=== PATIENT | female | born 1935 | race Caucasian/White ===

== ENCOUNTER → 2016-08-04 08:09 | Outpatient (CLI) | payer MEDICARE, OTHER ==
[2015-02-19 19:31] VITALS: BMI 33.9
[~2016-08-04 08:09] MED LIST: ALEVE220 MG PO; ASCORBIC ACID500 MG PO; BAYER CHEWABLE81 MG PO; CALCIUM 600 +1 EAC3 PO; GLUCOPHAGE500 MG PO; K-TAB10 MEQ PO; LASIX20 MG PO; POTASSIUM99 M1 PO; PROBENECID500 MG PO; XANAX0.25 MG PO; ZOCOR40 MG PO; ZYLOPRIM300 MG PO
== END | disposition home or self-care (01) ==
LOC: D.CT 08:09
DX: N28.1 Cyst of kidney, acquired (principal)

== ENCOUNTER 2017-07-23 03:11 | Inpatient (IN) | payer MEDICARE, OTHER ==
[~2017-07-23] VITALS: Ht 170.2 cm; Wt 97.0 kg
[2017-07-23] VITALS (7 sets, daily range): BP systolic 133–177; BP diastolic 52–70; BMI 30.6
[2017-07-23 03:53] LABS: BASOPHILS 0.1 % (0-2); EOSINOPHILS 0.1 % (0-7); HEMOGLOBIN 13.6 g/dL (12-16); IMMATURE GRANULOCYTES 0.2 % (0-5); LYMPHOCYTES 7.6 % (15-50); MCH 29.8 pg (26.0-34.0); MCHC 33.2 g/dL (31.0-37.0); MCV 89.7 fL (80.0-100.0); MEAN PLATELET VOLUME 10.8 fL (7.4-10.4); MONOCYTES 12.7 % (2-11); NEUTROPHILS 79.3 % (40-80); PLATELET COUNT 138 10x3/uL (130-400); RBC 4.57 10x6/uL (4.00-5.40); RDW 13.3 % (11.5-14.5)
[2017-07-23 04:13] LABS: ALBUMIN 3.6 g/dL (3.4-5.0); ALKALINE PHOSPHATASE 323 U/L (46-116); ALT (SGPT) 201 U/L (10-68); CALC OSMOLALITY 276 mosm/kg (275-300); CALCIUM 9.5 mg/dL (8.5-10.1); CARBON DIOXIDE 25.1 mmol/L (21.0-32.0); CHLORIDE - SERUM 102 mmol/L (98-107); CREATININE - SERUM 0.8 mg/dL (0.6-1.3); GLUCOSE 180 mg/dL (74-106); POTASSIUM - SERUM 3.8 mmol/L (3.5-5.1); PROTEIN - SERUM 8.6 g/dL (6.4-8.2); SODIUM 135 mmol/L (136-145); UREA NITROGEN 18 mg/dL (7-18); eGFR NON AFRICAN AMERICAN 73 mL/min (90-120)
[2017-07-23 04:16] LABS: TROPONIN-I < 0.017 ng/mL (0.000-0.060)
[2017-07-23 07:16] LABS: APPEARANCE CLEAR (CLEAR); BILIRUBIN 1+ (NEGATIVE); COLOR DK YELLOW (YELLOW); GLUCOSE NEGATIVE (NEGATIVE); KETONE NEGATIVE (NEGATIVE); NITRITE POSITIVE (NEGATIVE); PROTEIN TRACE mg/dL (NEGATIVE); SPECIFIC GRAVITY 1.015 (1.005-1.020)
[2017-07-23 07:17] LABS: RED CELLS - URINE 0-5 /hpf (0-5); WHITE CELLS - URINE 0-5 /hpf (0-5)
[2017-07-23 07:18] LABS: AMORPHOUS SEDIMENT <1+ /lpf (NONE SEEN); BACTERIA MANY /hpf (NONE SEEN); EPITHELIAL CELLS 0-5 /hpf (0-5)
[2017-07-24] VITALS: BP 145/64
[2017-07-24 04:00] VITALS: BP 144/71
[2017-07-24 04:23] LABS: BASOPHILS 0.2 % (0-2); EOSINOPHILS 1.4 % (0-7); HEMOGLOBIN 11.4 g/dL (12-16); IMMATURE GRANULOCYTES 0.2 % (0-5); LYMPHOCYTES 13.7 % (15-50); MCH 29.7 pg (26.0-34.0); MCHC 33.5 g/dL (31.0-37.0); MCV 88.5 fL (80.0-100.0); MEAN PLATELET VOLUME 11.2 fL (7.4-10.4); MONOCYTES 12.6 % (2-11); NEUTROPHILS 71.9 % (40-80); PLATELET COUNT 139 10x3/uL (130-400); RBC 3.84 10x6/uL (4.00-5.40); RDW 13.6 % (11.5-14.5)
[2017-07-24 04:34] LABS: WBC 6.6 10x3/uL (4.8-10.8)
[2017-07-24 04:39] LABS: ANION GAP 14.9 mmol/L (8-16); BILIRUBIN - DIRECT 3.39 mg/dL (0.00-0.30); BILIRUBIN - TOTAL 4.3 mg/dL (0.2-1.3); CALCIUM 8.3 mg/dL (8.5-10.1); CARBON DIOXIDE 24.9 mmol/L (21.0-32.0); CREATININE - SERUM 0.8 mg/dL (0.6-1.3); MAGNESIUM - SERUM 1.9 mg/dL (1.8-2.4); POTASSIUM - SERUM 3.8 mmol/L (3.5-5.1)
[2017-07-24 04:46] LABS: ALBUMIN 2.6 g/dL (3.4-5.0)
[2017-07-24 08:08] VITALS: BP 133/54
[2017-07-24 10:46] VITALS: BMI 30.5
[2017-07-24 11:31] VITALS: BP 156/90
[2017-07-24 15:18] VITALS: BP 168/85
[2017-07-24 16:26] VITALS: Ht 170.2 cm; Wt 97.0 kg
[2017-07-24 21:05] VITALS: BP 177/84
[2017-07-25] VITALS: BP 161/68
[2017-07-25 04:00] VITALS: BP 151/70
[2017-07-25 04:52] LABS: BASOPHILS 0.2 % (0-2); EOSINOPHILS 3.9 % (0-7); HEMOGLOBIN 11.5 g/dL (12-16); IMMATURE GRANULOCYTES 0.2 % (0-5); LYMPHOCYTES 13.5 % (15-50); MCH 29.3 pg (26.0-34.0); MCHC 32.9 g/dL (31.0-37.0); MCV 89.3 fL (80.0-100.0); MEAN PLATELET VOLUME 10.7 fL (7.4-10.4); MONOCYTES 14.3 % (2-11); NEUTROPHILS 67.9 % (40-80); PLATELET COUNT 139 10x3/uL (130-400); RBC 3.92 10x6/uL (4.00-5.40); RDW 13.5 % (11.5-14.5); WBC 5.1 10x3/uL (4.8-10.8)
[2017-07-25 04:53] LABS: INR 1.27 (0.85-1.17); PROTIME 15.5 SECONDS (11.6-15.0)
[2017-07-25 05:18] LABS: ALBUMIN 2.6 g/dL (3.4-5.0); ALKALINE PHOSPHATASE 304 U/L (46-116); ALT (SGPT) 135 U/L (10-68); BILIRUBIN - DIRECT 1.13 mg/dL (0.00-0.30); CALC OSMOLALITY 285 mosm/kg (275-300); CALCIUM 8.4 mg/dL (8.5-10.1); CARBON DIOXIDE 24.6 mmol/L (21.0-32.0); CHLORIDE - SERUM 107 mmol/L (98-107); CREATININE - SERUM 0.7 mg/dL (0.6-1.3); GLUCOSE 89 mg/dL (74-106); MAGNESIUM - SERUM 1.8 mg/dL (1.8-2.4); POTASSIUM - SERUM 3.8 mmol/L (3.5-5.1); SODIUM 143 mmol/L (136-145); UREA NITROGEN 18 mg/dL (7-18); eGFR NON AFRICAN AMERICAN 85 mL/min (90-120)
[2017-07-25 05:28] LABS: LIPASE 1594 U/L (73-393)
[2017-07-25 07:51] VITALS: BP 170/71
[2017-07-25 15:21] VITALS: BP 134/59
[2017-07-25 20:10] VITALS: BP 148/66
[2017-07-25 23:38] VITALS: BP 150/63
[2017-07-26 02:22] LABS: APPEARANCE HAZY (CLEAR); BILIRUBIN NEGATIVE (NEGATIVE); COLOR DK YELLOW (YELLOW); GLUCOSE 50 mg/dL (NEGATIVE); KETONE MODERATE mg/dL (NEGATIVE); NITRITE NEGATIVE (NEGATIVE); PROTEIN 2+ mg/dL (NEGATIVE); SPECIFIC GRAVITY 1.025 (1.005-1.020); UROBILINOGEN NORMAL (NORMAL)
[2017-07-26 02:24] LABS: BACTERIA MODERATE /hpf (NONE SEEN); EPITHELIAL CELLS 0-5 /hpf (0-5); MUCUS <1+ /lpf (NONE SEEN); RED CELLS - URINE 0-5 /hpf (0-5)
[2017-07-26 04:56] VITALS: BP 127/63
[2017-07-26 05:11] LABS: BASOPHILS 0.1 % (0-2); EOSINOPHILS 0.1 % (0-7); HEMATOCRIT 32.7 % (36.0-48.0); HEMOGLOBIN 10.6 g/dL (12-16); IMMATURE GRANULOCYTES 0.1 % (0-5); LYMPHOCYTES 10.2 % (15-50); MCH 29.4 pg (26.0-34.0); MCHC 32.4 g/dL (31.0-37.0); MCV 90.6 fL (80.0-100.0); MEAN PLATELET VOLUME 10.8 fL (7.4-10.4); MONOCYTES 17.9 % (2-11); NEUTROPHILS 71.6 % (40-80); PLATELET COUNT 142 10x3/uL (130-400); RBC 3.61 10x6/uL (4.00-5.40); RDW 13.6 % (11.5-14.5)
[2017-07-26 05:33] LABS: WBC 7.6 10x3/uL (4.8-10.8)
[2017-07-26 05:55] LABS: ALBUMIN 2.3 g/dL (3.4-5.0); BILIRUBIN - DIRECT 0.62 mg/dL (0.00-0.30); BILIRUBIN - TOTAL 1.2 mg/dL (0.2-1.3); CALCIUM 8.3 mg/dL (8.5-10.1); CARBON DIOXIDE 25.7 mmol/L (21.0-32.0); MAGNESIUM - SERUM 1.8 mg/dL (1.8-2.4); PROTEIN - SERUM 6.6 g/dL (6.4-8.2)
[2017-07-26 05:56] LABS: ANION GAP 10.9 mmol/L (8-16); CREATININE - SERUM 0.9 mg/dL (0.6-1.3); POTASSIUM - SERUM 4.6 mmol/L (3.5-5.1)
[2017-07-26 08:40] VITALS: BP 123/61
[2017-07-26 12:11] VITALS: BP 125/55
[2017-07-26] MEDS ORDERED: HYDROCODON-ACE1 EAC7 PO ×2 (12:19→12:21)
[2017-07-26 14:23] LABS: ANA REFLEX - ANTICHROMATIN ABS <0.2 AI (0.0-0.9); ANA REFLEX - CENTROMERE B ABS <0.2 AI (0.0-0.9); ANA REFLEX - DBL STRANDED DNA <1 IU/mL (0-9); ANA REFLEX - DIRECT Positive (Negative); ANA REFLEX - JO-1 AB <0.2 AI (0.0-0.9); ANA REFLEX - RNP ANTIBODIES <0.2 AI (0.0-0.9); ANA REFLEX - SCL-70 <0.2 AI (0.0-0.9); ANA REFLEX - SJOGRENS AB SSA >8.0 AI (0.0-0.9); ANA REFLEX - SJOGRENS AB SSB <0.2 AI (0.0-0.9); ANA REFLEX - SMITH AB <0.2 AI (0.0-0.9); HEPATITIS C ANTIBODY 0.1 (0.0-0.9)
[2017-07-26 17:27] VITALS: BP 140/68
[2017-07-26 20:38] VITALS: BP 141/61
[2017-07-27 00:36] VITALS: BP 148/67
[2017-07-27 04:38] LABS: BASOPHILS 0.1 % (0-2); EOSINOPHILS 0 % (0-7); HEMATOCRIT 32.8 % (36.0-48.0); HEMOGLOBIN 11.1 g/dL (12-16); IMMATURE GRANULOCYTES 0.2 % (0-5); LYMPHOCYTES 6.5 % (15-50); MCH 30.1 pg (26.0-34.0); MCHC 33.8 g/dL (31.0-37.0); MCV 88.9 fL (80.0-100.0); MEAN PLATELET VOLUME 10.8 fL (7.4-10.4); MONOCYTES 8.5 % (2-11); NEUTROPHILS 84.7 % (40-80); PLATELET COUNT 158 10x3/uL (130-400); RBC 3.69 10x6/uL (4.00-5.40); RDW 13.7 % (11.5-14.5); WBC 8.7 10x3/uL (4.8-10.8)
[2017-07-27 04:51] LABS: ALBUMIN 2.4 g/dL (3.4-5.0); ANION GAP 13.7 mmol/L (8-16); BILIRUBIN - TOTAL 1.61 mg/dL (0.2-1.3); CALCIUM 8.7 mg/dL (8.5-10.1); CARBON DIOXIDE 21.5 mmol/L (21.0-32.0); CREATININE - SERUM 0.9 mg/dL (0.6-1.3); MAGNESIUM - SERUM 1.7 mg/dL (1.8-2.4); POTASSIUM - SERUM 4.2 mmol/L (3.5-5.1); PROTEIN - SERUM 7.2 g/dL (6.4-8.2)
[2017-07-27 05:31] VITALS: BP 113/60
[2017-07-27 07:00] VITALS: BP 135/66
[2017-07-27 12:31] VITALS: BP 123/61
[2017-07-27 14:23] LABS: MITOCHONDRIAL ANTIBODY 5.4 Units (0.0-20.0); SMOOTH MUSCLE ABS (ACTIN) 24 Units (0-19)
[2017-08-03 16:15] LABS: AEROBE ID Final report (())
== END 2017-07-27 15:29 | disposition home health service (06) | DRG 418 ==
LOC: D.ER 03:11 → D.EDHOLD 10:49 → D.M2 10:49
PROVIDERS: Family Medicine; Internal Medicine Gastroenterology; Surgery
PROC: 0FT44ZZ Resection of Gallbladder, Percutaneous Endoscopic Approach (ICD-10-PCS; principal; 2017-07-25 08:30)
DX: K80.42 Calculus of bile duct with acute cholecystitis without obstruction (principal); N39.0 Urinary tract infection, site not specified; E11.9 Type 2 diabetes mellitus without complications; R74.8 Abnormal levels of other serum enzymes; F32.9 Major depressive disorder, single episode, unspecified; K21.9 Gastro-esophageal reflux disease without esophagitis

== ENCOUNTER 2018-06-20 11:19 | Outpatient (CLI) | payer MEDICARE, OTHER ==
[~2018-06-20] VITALS: Ht 170.2 cm; Wt 86.8 kg
--- NOTE | ~2018-06-20 | HEMODYNAMI ---
PATIENT:ALINA THOMAS MEDICAL RECORD: [id number] : 35 LOCATION:[facility] ADMISSION DATE: 06/20/18 Generatedon:06/20/201815:30 Patient name: ALINA THOMAS Patient #: [id number] SSN: : Date of study: 06/20/2018 Page: Of Hemodynamic Procedure Report Patient Data Patient Demographics Procedure consent was obtained First Name: ALINA Gender: Female Last Name: MARTHA : 1935 Patient #: [id number] Age: 82 year(s) Race: Unknown Additional ID: [id number] Contact details Address: [address] [place] [address] State: [place] City: [facility] Zip code: [address] Past Medical History Allergies Allergen Reaction Date Comments Reported Sulfa drugs 06/20/2018 Admission Admission Data Admission Date: 06/20/2018 Admission Time: 11:19 Weight (lbs.): 191.8 Weight (kg.): 87 Lab Results Lab Result Date: 06/20/2018 Lab Result Time: 0:00 Biochemistry Name Units Result Min Max BUN mg/dl 25 --(----)-* 7 18 Creatinine mg/dl 0.8 --(-*--)-- 0.6 1.3 CBC Name Units Result Min Max Hematocrit % 38.7 *-(----)-- 42 54 Hemoglobin g/dl 13 -*(----)-- 13.5 17.5 Procedure Procedure Types Cath Procedure Diagnostic Procedure LHC LHC w/Coronaries Procedure Description Procedure Date Procedure Date: 06/20/2018 Procedure Start Time: 15:11 Procedure End Time: 15:26 Procedure Staff Name Function Jaxson Lees MD Performing Physician Annelise Vidal RT Monitor Meet Ohara RT Scrub Julienne Aparicio RN Nurse Reji Acuña RN Pet Adoption Counselor Procedure Data Cath Procedure Fluoroscopy Diagnostic fluoroscopy Total fluoroscopy Time: 1.3 time: 1.3 min min Diagnostic fluoroscopy Total fluoroscopy dose: 462 dose: 462 mGy mGy Contrast Material Contrast Material Type Amount (ml) Isovue 300 53 Entry Location Entry Primary Successful Side Size Upsize Upsize Entry Closure Succes sful Closure Location (Fr) 1 (Fr) 2 (Fr) Remarks Device Remarks Femoral Right 5 Fr Exoseal artery Estimated blood loss: 5 ml Diagnostic catheters Device Type Used For End Catheter Placement MULTIPACK JL 4.0 5Fr Procedure catheter MULTIPACK 3DRC 5Fr Procedure catheter MULTIPACK Pigtail 5 Fr Procedure catheter Procedure Complications No complications Procedure Medications Medication Administration Route Dosage 0.9% NaCl I.V. 100 ml/hr Oxygen etCO2 Nasal cannula 2 l/min Lidocaine 2% added to field 20 Heparin Flush Bag added to field 2 bags (1000units/500ml NS) Versed I.V. 2 mg Fentanyl I.V. 50 mcg Fentanyl I.V. 50 mcg Hemodynamics Rest HGB: 13 (g/dl) Heart Rate: 77 (bpm) Pressure Samples Time Site Value (mmHg) Purpose Heart Use Rate(bpm) 15:22 LV 180/23,23 EDP 75 Gradients Valve Time Site Site Mean SEP/DFP Peak To Heart Use 1 2 (mmHg) (sec/min) Peak Rate (mmHg) (bpm) Aortic 15:22 LV AO 76 Snapshots Pre Cath Intra NCS Post Cath Vital Signs Time Heart Resp SPO2 etCO2 NIBP (mmHg) Rhythm Pain Sedation Rate (ipm) (%) (mmHg) Status Level (bpm) 15:07:06 74 18 99 34.2 176/85(140) NSR 0 (11) 10(A) , No pain 15:11:41 70 15 97 36.8 159/82(135) NSR 0 (11) 10(A) , No pain 15:16:13 70 13 98 36.5 167/83(137) NSR 0 (11) 9(A) , No pain 15:20:46 73 13 99 25.3 160/84(128) NSR 0 (11) 10(A) , No pain 15:25:18 79 17 80 36.5 178/88(132) NSR 0 (11) 10(A) , No pain Medications Time Medication Route Dose Verified Delivered Reason Notes Eff ectiveness by by 15:05:52 0.9% NaCl I.V. 100 Jaxson Robins used for ml/hr [facility] Aparicio procedure RN 15:05:59 Oxygen etCO2 2 Jaxson Julienne used for Nasal l/min [facility] procedure cannula RN 15:06:04 Lidocaine 2% added 20ml Jaxson Puri for local to vial [facility] anesthetic field MD THOMPSON 15:06:09 Heparin Flush added 2 Jaxson Puri used for Bag to bags [facility] procedure (1000units/500ml field MD THOMPSON NS) 15:11:12 Versed I.V. 2 mg Jaxson Julienne for YoanaMorro Aparicio sedation MD OROURKE 15:11:18 Fentanyl I.V. 50 Jaxson Julienne for mcg [place] Markus sedation MD OROURKE 15:14:43 Fentanyl I.V. 50 Jaxson Julienne for [facility] Markus sedation MD OROURKEham passer Log Time Note 14:29:01 Signed procedure consent form obtained from patient. 14:29:02 Diagnostic Cath status Elective 14:29:04 Time tracking: Regular hours (M-F 7:00 - 5:00) 14:29:07 Plan of Care:Hemodynamics will remain stable., Cardiac rhythm will remain stable., Comfort level will be maintained., Respiratory function will remain adequate., Patient/ family verbilizes understanding of procedure., Procedure tolerated without complication., Recovers from procedure without complications.. 14:40:15 Reji Acuña RN sent for patient. Start room use. 14:45:44 Patient Weight : 191.8 lbs 14:46:08 Patient allergic to Sulfa drugs 14:46:35 Lab Result : Creatinine 0.8 mg/dl 14:46:35 Lab Result : BUN 25 mg/dl 14:46:35 Lab Result : Hemoglobin 13 g/dl 14:46:35 Lab Result : Hematocrit 38.7 % 14:48:15 Patient received from Pre/Post Procedure Room to CCL 1 Alert and oriented. Tansferred to table in Supine position. 14:48:16 Warm blankets applied, and reji hugger turned on for patient comfort. 14:48:17 Correct patient and procedure confirmed by team. 14:48:17 ECG and BP/O2 sat monitors applied to patient. 14:54:12 H&P Date Dictated: 06/19/2018 Within 30 days and on chart., H&P Addendum completed by physician on day of procedure. (MUST COMPLETE FOR ALL OUTPATIENTS). 14:54:12 Pre-procedure instructions explained to patient. 14:54:13 Pre-op teaching completed and patient verbalized understanding. 14:54:14 Family in patients room. 14:54:15 Patient NPO since Midnight. 14:54:25 Is patient on blood thinner?Yes 14:54:28 ACC The patient was administered the following blood thiners within the last 24 hours: ACCAspirin 14:54:30 Is the patient allergic to Iodine/contrast media? No. 14:54:41 Patient diabetic? Yes. 14:54:47 Previous problem with sedation/anesthesia? No ? 14:54:48 Snore? Yes 14:54:49 Sleep apnea? No 14:54:50 Deviated septum? No 14:54:51 Opens mouth fully? Yes 14:54:52 Sticks out tongue? Yes 14:54:54 Airway obstruction? No ? 14:54:59 Dentures? Yes IN TIGHT 14:55:03 Modified Memo's test Ulnar < 7 seconds 14:55:05 Patient pain scale 0/10 ?. 14:55:08 IV patent on arrival in left forearm with 0.9% NaCl at [facility]. 14:55:11 Lab results completed and on chart. 14:55:20 Right groin area was prepped with chlora-prep and draped in sterile fashion 14:55:21 Alarms reviewed by R. N. 14:55:21 Sharps counted by scrub and verified by R.N. 14:56:11 Use device set Radial Dx or PCI 14:56:12 ACIST Syringe (88742) opened to sterile field. 14:56:13 Bag Decanter () opened to sterile field. 14:56:14 ACIST Hand Control (04986) opened to sterile field. 14:56:14 ACIST Manifold (25890) opened to sterile field. 14:56:15 Tegaderm 4 x 4 (1626W) opened to sterile field. 14:56:17 Medline Cath Pack ([id number]) opened to sterile field. 14:56:18 DIAGNOSTIC WIRE .035 260cm J wire (844977) opened to sterile field. 14:56:18 MBrace Wrist Support ([id number]) opened to sterile field. 14:56:19 SHEATH 6FR Slender (86-1060) opened to sterile field. 15:05:38 Vital chart was started 15:05:40 Baseline sample Acquired. 15:05:44 Rhythm: sinus rhythm 15:05:46 Full Disclosure recording started 15:05:52 0.9% NaCl 100 ml/hr I.V. was administered by Julienne Aparicio RN; used for procedure; 15:05:59 Oxygen 2 l/min etCO2 Nasal cannula was administered by Julienne Aparicio RN; used for procedure; 15:06:04 Lidocaine 2% 20ml vial added to field was administered by Jaxson Lees MD; for local anesthetic; 15:06:08 If diabetic: On Metformin? Yes 15:06:09 Heparin Flush Bag (1000units/500ml NS) 2 bags added to field was administered by Jaxson Lees MD; used for procedure; 15:06:12 If on Metformin: Last Dose? 06/19/2018 15:09:34 Physician arrived 15:09:35 --------ALL STOP TIME OUT------ 15:09:35 Final Timeout: patient, procedure, and site verified with staff and physician. All members of the team are in agreement. 15:09:39 Right Radial site verified by team. 15:09:48 Maximum allowable Isovue 370 dose 300ml. Physician notified. (300ml for normal creatinines. For patients with creatinine of 1.7 or higher multiply weight(kg) x 5 divided by creatinine.) 15:09:59 Fire Safety Assessment: A--An alcohol-based skin anteseptic being used preoperatively., B--The operative or invasive procedure is being performed above the xiphoid process or in the oropharynx., D--An ESU, laser, or fiber-optic light is being used. 15:10:14 Physical assessment completed. ASA score P 2 - A patient with mild systemic disease as per Julienne Aparicio RN. 15:10:28 Sedation plan: IV Moderate Sedation Medication:Versed, Fentanyl 15:10:51 Procedure started. 15:11:01 Local anesthetic to right radial artery with Lidocaine 2% by Jaxson Lees MD.INITIAL ACCESS ONLY 15:11:12 Versed 2 mg I.V. was administered by Julienne Aparicio RN; for sedation; 15:11:18 Fentanyl 50 mcg I.V. was administered by Julienne Aparicio RN; for sedation; 15:13:12 UNABLE TO ADVANCE WIRE. WILL PROCEED TO GROIN 15:13:19 SHEATH 5FR [place] (SWQ980) opened to sterile field. 15:13:22 Use device set Multipack Set 15:13:24 DIAGNOSTIC Multipack 5Fr catheter set (HS0195) opened to sterile field. 15:13:36 Local anesthetic to right femoral artery with Lidocaine 2% by Jaxson Lees MD.ADDITIONAL ACCESS 15:14:07 A 5 Fr sheath was inserted into the Right Femoral artery 15:14:43 Fentanyl 50 mcg I.V. was administered by Julienne Aparicio RN; for sedation; 15:16:44 TR BAND Standard ([id number]) opened to sterile field. 15:18:28 TR BAND APPLIED DUE TO CONTINUALLY BLEEDING 15:18:38 A MULTIPACK JL 4.0 5Fr catheter was advanced over the wire and used for Procedure. 15:19:26 LCA angiography performed. 15:19:54 Catheter removed. 15:20:15 A MULTIPACK 3DRC 5Fr catheter was advanced over the wire and used for Procedure. 15:21:12 RCA angiography performed. 15:21:46 Catheter removed. 15:21:50 A MULTIPACK Pigtail 5 Fr catheter was advanced over the wire and used for Procedure. 15:22:08 LV gram done using GUZMÁN 15:22:10 Injector settings: Ml/sec: 10, Volume: 20, 15:22:30 LV hemodynamics recorded. 15:22:46 EF : 35 % 15:22:48 Catheter removed. 15:23:01 EXOSEAL 5Fr (EX500) opened to sterile field. 15:23:35 Sheath removed intact; hemostasis achieved with Exoseal to the Right Femoral artery. 15:23:39 Procedure ended.(Physican Out) 15:24:04 Fluoroscopy time 01.30 minutes. 15:24:08 Fluoroscopy dose: 462 mGy 15:24:08 Flurop Dose total: 462 15:24:11 Contrast amount:Isovue 300 53ml. 15:24:13 Sharps counted by scrub and verified by R.N. 15:24:16 Post-op/insertion site Right Femoral artery dressed using a 4 x 4 and Tegaderm. 15:24:20 Post-procedure physical assessment completed. ASA score P 2 - A patient with mild systemic disease as per Jaxson Lees MD. 15:24:27 Post procedure rhythm: sinus rhythm 15:24:55 Estimated blood loss: 5 ml 15:24:57 Post procedure instruction explained to patient.Patient verbalizes understanding. 15:25:00 Patient needs reinforcement of post procedure teaching. 15:26:30 Procedure and supply charges have been captured, reviewed, submitted and are correct. 15:26:37 Procedure Complication : No complications 15::39 Vital chart was stopped 15::39 See physician's report for complete and final results. 15:26:44 Report given to Pre/Post Procedure Room. 15:26:46 Patient transfered to Pre/Post Procedure Room with Bed. 15:26:49 Procedure ended. 15:26:49 Full Disclosure recording stopped 15:26:53 End room use (Document Last) Device Usage Item Name Manufacture Quantity Catalog Hospital Part Current Minimal Lot# / Number Charge Number Stock Stock Serial# Code ACIST Acist 1 98721 669813 130138 294524 20 Syringe Medical (61382) Systems Inc Bag Microtek 1 993312 18173 541600 5 Decanter Medical Inc. () ACIST Hand Acist 1 36912 763874 839634 639131 5 Control Medical (26640) Systems Inc ACIST Acist 1 84907 658487 953954 270277 5 Manifold Medical (57936) Systems Inc Tegaderm 4 3M 1 1626W 467444 316473 892701 5 x 4 (1626W) Medline Medline 1 [id number] 202013 20715 269470 5 Cath Pack ([id number]) DIAGNOSTIC St Robson 1 015774 030077 580097 255881 30 WIRE .035 260cm J wire (427331) MBrace Advanced 1 140-0250-00 779606 88484 828192 5 Wrist Vascular Support Dynamics ([id number]) SHEATH 6FR Terumo 1 [id number] 895480 822920 776822 5 Slender (80-1060) SHEATH 5FR Terumo 1 RBR165 284433 124355 705534 5 [place] (LXF600) DIAGNOSTIC Cardinal 1 OZ2370 342182 89849 956576 30 Mozido 5Fr catheter set (TA0055) TR BAND Terumo 1 [id number] 739598 135133 966078 40 Standard (UQT44XUA) MULTIPACK Cardinal 1 856465 5 JL 4.0 5Fr Health catheter MULTIPACK Cardinal 1 998628 5 3DRC 5Fr Health catheter MULTIPACK Cardinal 1 200829 5 Pigtail 5 Health Fr catheter EXOSEAL 5Fr Cardinal 1 EX500 371508 244010 016280 10 (EX500) Health Signature Audit [place] Stage Time Signature Unsigned Intra-Procedure 06/20/2018 Annelise Vidal 3:30:27 PM RT(R) Signatures Monitor : Annelise Vidal Signature : RT Date : Time : [address] [address]
[~2018-06-20 11:19] MED LIST changes: +HYDROCODON-ACE1 EAC7 PO
[2018-06-20] MEDS ORDERED: GABAPENTIN100 MG PO (11:51)
[2018-06-20] MEDS ORDERED: PROBENECID500 MG PO ×2 (11:51→11:52)
[2018-06-20 12:02] VITALS: BP 138/72; Ht 170.2 cm; Wt 86.8 kg
[2018-06-20 12:16] LABS: BASOPHILS 0.3 % (0-2); HEMATOCRIT 38.7 % (36.0-48.0); IMMATURE GRANULOCYTES 0.2 % (0-5); LYMPHOCYTES 17.5 % (15-50); MCH 30.7 pg (26.0-34.0); MCHC 33.6 g/dL (31.0-37.0); MCV 91.5 fL (80.0-100.0); MEAN PLATELET VOLUME 11.1 fL (7.4-10.4); MONOCYTES 11.5 % (2-11); NEUTROPHILS 69.5 % (40-80); PLATELET COUNT 189 10x3/uL (130-400); RBC 4.23 10x6/uL (4.00-5.40); RDW 13.3 % (11.5-14.5); WBC 9.1 10x3/uL (4.8-10.8)
[2018-06-20 12:21] LABS: ANION GAP 10.9 mmol/L (8-16); CALCIUM 9.2 mg/dL (8.5-10.1); CARBON DIOXIDE 27.2 mmol/L (21.0-32.0); CREATININE - SERUM 0.8 mg/dL (0.6-1.3); POTASSIUM - SERUM 4.1 mmol/L (3.5-5.1)
--- NOTE | 2018-06-20 15:50 | NUR ---
PT VISITING WT FRIEND IN ROOM, DENIES ANY C/O. VSS, DENIES ANY C/O. TR BAND IS CDI, FINGERS WARM AND CAP REFILL IS BRISK. EXOSEAL IS CDI TO RIGHT GROIN, PEDAL PULSES PALPABLE. HOB IS FLAT
--- NOTE | 2018-06-20 16:26 | NUR ---
DRESSING TO RIGHT GROIN IS CDI, TR BAND CDI, FINGERS AND TOES WARM WITH BRISK CAP REFILL. HOB IS FLAT, VSS, RESP WITH EASE.
[2018-06-20] MEDS ORDERED: COZAAR50 MG PO (16:38)
[2018-06-20] MEDS ORDERED: ALDACTONE25 MG PO (16:38)
--- NOTE | 2018-06-20 16:50 | NUR ---
PT ASSISTED ONTO BEDPAN, 4 CC OF AIR HAS BEEN WEANED FROM TR BAND WTIH NO BLEEDING NOTED. FINGERS WAM AND CAP REFILL IS BRISK. PT IS ALERT AND DENIES ANY C/O.
--- NOTE | 2018-06-20 17:06 | NUR ---
4 CC OF AIR WEANED FROM TR BAND WTIH NO BLEEDING NOTED. DRESING CDI TO RIGHT GROIN, PEDAL PULSES PALPABLE. PT DENIES ANY C/O. HOB ELEVATED.
--- NOTE | 2018-06-20 19:39 | NUR ---
1720 ALL REMAINING AIR WEANED FROM TR BAND WITH NO BLEEDING NOTED. TR BAND REMOVED AND 2X2 TEGADERM PLACED TO SITE. WRIST IMMOBILIZER IN PLACE. FINGERS WARM AND CAP REFILL IS BRISK. RADIAL PULSE PALPABLE. DRESSING CDI TO RIGHT GROIN, HOB IS ELEVATED. PEDAL PULSES PALPABLE. DC INSTRUCTIONS REVIEWED WITH PT AND FRIEND IN ROOM, WHO VERBALIZE UNDERSTANDING. PT SITTING UP IN BED, EATING SANDWICH, DENIES ANY C/O. PT HAS VOIDED QS. 1735 IV DC'D WITH CATH INTACT AND ASSISTED PT WITH DRESSING FOR DC TO HOME. 1745 PT ESCORTED TO PRIVATE AUTO VIA WC BY [facility] FRIEND DRIVING HER HOME. PT IS ALERT AND DENIES ANY C/O AT TIME OF DC. HAS ALL PERSONAL BELONGINGS AND DC INSTRUCTIONS AT TIME OF DISCHARGE.
--- NOTE | 2018-06-25 12:26 | OP ---
PATIENT NAME: ALINA THOMAS MEDICAL RECORD: [id number] :35 LOCATION:D.CAT ADMISSION DATE: SURGEON: ISA BOWSER MD DATE OF OPERATION: 06/20/2018 PROCEDURE: Left heart catheterization, selective coronary angiography, right femoral artery approach. CATHETERS: A 5-Belgian sheath, 5/4 left and right Alicia, 5/4 pig. The procedure was well tolerated. The patient was returned to the ortiz. Sheath was removed. ExoSeal device was placed. FINDINGS: Left ventriculography in 30-degree GUZMÁN view shows global hypokinesis, marked inferior hypokinesis, LV function reduced 30-35%. CORONARY ANATOMY: LEFT MAIN: Left main is free of disease. LAD: Has severe diffuse distal disease, not amenable to percutaneous intervention. CIRCUMFLEX: There is a large circumflex, free of disease. RIGHT CORONARY ARTERY: Totally occluded, fills via left to right collaterals. IMPRESSION: Ischemic cardiomyopathy. At this point in time, we will start ARB as well as Aldactone. If pressures tolerate, we would add a beta-dwayne as well from more anginal myopathic standpoint. TRANSINT:[id number] Voice Confirmation ID: [id number] DOCUMENT ID: [id number] ISA BOWSER MD at 1226 CC: [id number] DICTATION DATE: 06/20/18 1549 MERCHANDISE STOCKER: 06/20/18 1704 DEP CLI 06/20/18 [facility] [address] [place] [id number]
== END 2018-06-20 17:45 | disposition home or self-care (01) ==
LOC: D.CATH 11:19
PROVIDERS: ATTEND Internal Medicine Interventional Cardiology
DX: I25.5 Ischemic cardiomyopathy (principal); I25.119 Atherosclerotic heart disease of native coronary artery with unspecified angina pectoris; Z01.812 Encounter for preprocedural laboratory examination

== ENCOUNTER → 2018-08-28 11:27 | Outpatient (CLI) | payer MEDICARE, OTHER ==
[~2018-08-28 11:27] MED LIST changes: +ALDACTONE25 MG PO; +COZAAR50 MG PO; +GABAPENTIN100 MG PO
--- NOTE | 2018-09-02 08:31 | EC ---
PATIENT:ALINA THOMAS DATE OF SERVICE: 08/28/18 SEX: F MEDICAL RECORD: [id number] DATE OF : 35 [facility] AGE OF PATIENT: 83 ADMISSION DATE: 08/28/18 REFERRING PHYSICIAN: INTERPRETING PHYSICIAN: ISA BOWSER MD ECHOCARDIOGRAM REPORT ECHO CHARGES 4 ECHO COMPLETE Date: 08/28/18 CLINICAL DIAGNOSIS: CARDIOMYOPATHY, ASSESS EF ECHOCARDIOGRAPHIC MEASUREMENTS (adult normal given) AC root (d.<3.7cm) 3.4 cm LV Septum d (<1.2 cm> 1.6 cm Valve Excursion 1.7 cm LV Septum (systole) 2.0 cm Left Atria (s.<4.0cm> 4.1 cm LVPW d(<1.2cm) 1.6 cm RV (d.<2.3cm) 3.4 cm LVPW (sytole) 1.9 cm LV diastole(<5.6CM) 5.0 cm MV E-F(>70mm/sec) cm LV systole 3.3 cm LVOT Diameter 1.8 cm MV exc.(>10mm) 1.4 cm Est.ejection fraction (50-75%) % DOPPLER: LVIT cm/sec A 114 cm/sec E 68.0 cm/sec LA cm/sec RVSP 24 mmHg LVOT 107 cm/sec AOP1/2T 394 m/s Asc. Ao 134 cm/sec RVOT cm/sec RA cm/sec PA 118 cm/sec AV Gradient Peak 7.18 mmHg AV Mean 3.55 mmHg AV Area 2.6 cm MV Gradient Peak 6.16 mmHg MV Mean 2.19 mmHg MV Area cm COMMENTS: Job Interviewer: Imtiaz FUNG Design Teacher: 3 Dr. Reed TAPE# PACS Pericardial Effusion N DATE OF SERVICE: 08/28/2018 Adequate 2-D echo, color-flow and spectral Doppler, and M-mode. Mild LVH. LV internal dimensions are normal. Wall motion is normal. EF is greater than 55%. Aortic valve is tricuspid. There is no evidence of stenosis by Doppler interrogation. Mild AI by color-flow imaging. Left atrium is at upper limits of normal at 4.1 cm. Mitral valve shows no prolapse. Mild MR. Right-sided chambers are grossly normal. Trace TR. ECHOCARDIOGRAM REPORT [id number] ALINA HTOMAS TRANSINT:[id number] Voice Confirmation ID: [id number] DOCUMENT ID: [id number] ISA BOWSER MD at 0831 CC: [id number] DICTATION DATE: 08/29/18 153 TEST BORER HELPER: 08/29/18 1612 DEP CLI 08/28/18 [place] [id number] [place] [id number]
== END | disposition home or self-care (01) ==
LOC: D.HCCARDIO 11:27
PROVIDERS: ATTEND Internal Medicine Interventional Cardiology
DX: I25.10 Atherosclerotic heart disease of native coronary artery without angina pectoris (principal)

== ENCOUNTER → 2018-10-22 09:03 | Outpatient (CLI) | payer MEDICARE, OTHER | END | disposition home or self-care (01) | LOC: D.MRI 09:03 | PROVIDERS: ATTEND Orthopaedic Surgery | DX: M54.16 Radiculopathy, lumbar region (principal) ==

== ENCOUNTER → 2019-05-14 11:57 | Outpatient (CLI) | payer MEDICARE, OTHER ==
[2019-05-14 12:26] LABS: BILIRUBIN NEGATIVE (NEGATIVE); GLUCOSE NEGATIVE (NEGATIVE); KETONE NEGATIVE (NEGATIVE); NITRITE POSITIVE (NEGATIVE); UROBILINOGEN NORMAL (NORMAL)
[2019-05-14 12:27] LABS: AMORPHOUS SEDIMENT <1+ /lpf (NONE SEEN); BACTERIA MANY /hpf (NEGATIVE); CALCIUM OXALATE CRYSTALS 0-5 /hpf (NONE SEEN); RED CELLS - URINE 0-5 /hpf (0-5); WHITE CELLS - URINE 0-5 /hpf (NEGATIVE)
== END | disposition home or self-care (01) ==
LOC: D.LABREF 11:57
PROVIDERS: ATTEND Urology
DX: N39.0 Urinary tract infection, site not specified (principal)

== ENCOUNTER 2019-10-03 05:16 | Day surgery (SDC) | payer MEDICARE, OTHER ==
[~2019-10-03] VITALS: Ht 171.4 cm; Wt 83.5 kg
[2019-10-03 05:54] LABS: HEMATOCRIT 36.8 % (36.0-48.0); HEMOGLOBIN 11.8 g/dL (12-16); MCH 29.1 pg (26.0-34.0); MCHC 32.1 g/dL (31.0-37.0); MCV 90.9 fL (80.0-100.0); MEAN PLATELET VOLUME 9.8 fL (7.4-10.4); RBC 4.05 10x6/uL (4.00-5.40); WBC 5.9 10x3/uL (4.8-10.8)
[2019-10-03 06:11] LABS: ANION GAP 10.1 mmol/L (8-16); CALCIUM 8.9 mg/dL (8.5-10.1); CARBON DIOXIDE 26.9 mmol/L (21.0-32.0); CREATININE - SERUM 0.9 mg/dL (0.6-1.3)
[2019-10-03 06:55] VITALS: BP 164/77; Ht 171.4 cm; Wt 83.5 kg
--- NOTE | 2019-10-03 10:21 | NUR ---
0900 IV D/C'D WITH CANNULA INTACT, PRESSURE HELD, AND DRSG PLACED. DISCHARGE INSTRUCTION GIVEN TO PT AND FRIEND. VERBALIZED AN UNDERSTANDING. DISCHARGED WITH PAYTON SCORE OF 16 AND W/O C/O
--- NOTE | 2019-10-03 13:49 | OP ---
PATIENT NAME: ALINA CHI MEDICAL RECORD: [id number] :35 LOCATION:D.OPS ADMISSION DATE: SURGEON: BONG LEE DO DATE OF OPERATION: 10/03/2019 PROCEDURE PERFORMED: Right endoscopic carpal tunnel release. PREOPERATIVE DIAGNOSIS: Right carpal tunnel syndrome. POSTOPERATIVE DIAGNOSIS: Right carpal tunnel syndrome. INDICATIONS: Ms. Chi patient is an 84-year-old female well known to me who has had right hand numbness and tingling with thenar atrophy for quite some time. She had nerve conduction study, which showed severe carpal tunnel syndrome of the wrist, entrapment of the median nerve. I informed her of the risks of the surgery including infection, bleeding, damage to nerves or vessels, need for further surgery, continued pain, continued numbness and atrophy not getting any better. She is aware of all those risks and signed the consent. SURGEON: Bong Lee DO DESCRIPTION OF PROCEDURE: The patient was taken to operative suite, laid in supine position, given general anesthetic. Two grams Ancef LMA were placed. Right upper extremity was then prepped and draped in sterile fashion. Timeout was performed. Everyone was in agreement with the correct site, side, patient, and procedure. I then began by exsanguinating the right upper extremity and tourniquet was inflated to 250 mmHg, it was up for 5 minutes. Then the incision centered over the palmaris longus tendon at the wrist on the volar side, with a 15 blade scalpel to go through the skin and bluntly dissected with Ragnells down to the median nerve. I then released the forearm fascia from distal to proximal with scissors under direct loupe magnification. I then entered the carpal tunnel with the dilators and then put in the sheath. I then brought the camera in and probe and the rasp to clean off the transverse carpal ligament and I had a good view and then brought the blade in, raised it up and transected the transverse carpal ligament. I had good picture of fat herniated down to the carpal tunnel, indicating good release. I then removed all the instruments and used the Ragnell and scissors and spreading any remaining fibers of transverse carpal ligament. I then injected the site with 0.25% Marcaine with epinephrine, 10 mL on the side and tourniquet was deflated. Meaghan Carrillo, certified fish hatchery assistant, then closed with a 5-0 Monocryl in inverted interrupted fashion. Steri-Strips, Adaptic, 4 x 4's, Kerlix, and Coban was lightly wrapped on hand. She was then awakened and taken to recovery in stable condition. BLOOD LOSS: Minimal. COMPLICATIONS: None. TRANSINT:[id number] Voice Confirmation ID: [id number] DOCUMENT ID: [id number] OPERATIVE REPORT [id number] ALINA CHI,BONG Keene DO at 1349 CC: [id number] DICTATION DATE: 10/03/19 0953 SCIENTIFIC ARTIST: 10/03/19 1054 [facility] 10/03/19 [address] [place] [address]
== END 2019-10-03 09:20 | disposition home or self-care (01) ==
LOC: D.OPS 05:16 → D.PAN 10:15 → D.OPS 13:15
PROVIDERS: Anesthesiology; ATTEND Orthopaedic Surgery
DX: G56.01 Carpal tunnel syndrome, right upper limb (principal); R60.0 Localized edema; E11.9 Type 2 diabetes mellitus without complications; M17.11 Unilateral primary osteoarthritis, right knee

== ENCOUNTER 2019-10-09 20:03 | Emergency (ER) | payer MEDICARE, OTHER ==
[~2019-10-09] VITALS: Ht 171.4 cm; Wt 85.0 kg
[2019-10-09 20:05] VITALS: BP 154/71; Ht 171.4 cm; Wt 85.0 kg
== END 2019-10-09 21:30 | disposition home or self-care (01) ==
LOC: D.ER 20:03
DX: M25.551 Pain in right hip (principal); W19.XXXA Unspecified fall, initial encounter; Y93.9 Activity, unspecified; Y92.9 Unspecified place or not applicable; E11.40 Type 2 diabetes mellitus with diabetic neuropathy, unspecified; I10 Essential (primary) hypertension; Z79.84 Long term (current) use of oral hypoglycemic drugs; M25.562 Pain in left knee

== ENCOUNTER → 2020-04-19 16:53 | Outpatient (CLI) | payer MEDICARE, OTHER ==
[2019-10-09 20:05] VITALS: BMI 28.9
[2020-04-19 16:59] LABS: BASOPHILS 0.3 % (0-2); EOSINOPHILS 3.8 % (0-7); HEMATOCRIT 36.4 % (36.0-48.0); HEMOGLOBIN 12.2 g/dL (12-16); IMMATURE GRANULOCYTES 0.1 % (0-5); LYMPHOCYTE ABS# 1.88 10x3/uL (1.18-3.74); LYMPHOCYTES 27.2 % (15-50); MCH 30.2 pg (26.0-34.0); MCHC 33.5 g/dL (31.0-37.0); MCV 90.1 fL (80.0-100.0); MEAN PLATELET VOLUME 10.7 fL (7.4-10.4); MONOCYTES 12.2 % (2-11); NEUTROPHIL ABS# 3.89 10x3/uL (1.56-6.13); NEUTROPHILS 56.4 % (40-80); RBC 4.04 10x6/uL (4.00-5.40); RDW 13.6 % (11.5-14.5); WBC 6.9 10x3/uL (4.8-10.8)
[2020-04-19 17:05] LABS: PLATELET COUNT 239 10x3/uL (130-400)
[2020-04-19 17:07] LABS: BACTERIA MANY HPF (NONE SEEN); BILIRUBIN NEGATIVE (NEGATIVE); KETONE NEGATIVE (NEGATIVE); NITRITE POSITIVE (NEGATIVE); UROBILINOGEN NORMAL mg/dL (< 2); WHITE CELLS - URINE >50 HPF (0-4)
[2020-04-19 17:11] LABS: ALBUMIN 3.3 g/dL (3.4-5.0); ALKALINE PHOSPHATASE 144 U/L (30-120); ALT (SGPT) 21 U/L (10-68); BILIRUBIN - TOTAL 0.64 mg/dL (0.2-1.3); CALC OSMOLALITY 284 mosm/kg (275-300); CALCIUM 9.3 mg/dL (8.5-10.1); CARBON DIOXIDE 27.9 mmol/L (21.0-32.0); CHLORIDE - SERUM 106 mmol/L (98-107); CREATININE - SERUM 0.6 mg/dL (0.6-1.3); GLUCOSE 101 mg/dL (74-106); POTASSIUM - SERUM 4.4 mmol/L (3.5-5.1); PROTEIN - SERUM 6.6 g/dL (6.4-8.2); SODIUM 142 mmol/L (136-145); UREA NITROGEN 17 mg/dL (7-18); eGFR NON AFRICAN AMERICAN > 90 mL/min (90-120)
== END | disposition home or self-care (01) ==
LOC: D.LABREF 16:53
PROVIDERS: ATTEND Legal Medicine
DX: R41.0 Disorientation, unspecified (principal)